=== PATIENT | male | born 1990 | race Caucasian/White ===

== ENCOUNTER 2016-06-03 21:34 | Emergency (ER) | payer BC ==
[2016-06-03 22:24] VITALS: BP 146/81
[2016-06-03] MEDS ORDERED: predniSONE TAB* 20 MG PO ONE (22:58)
[2016-06-03] MEDS ORDERED: Benzonatate CAP* 100 MG PO ONE ×2 (22:58→23:08)
--- NOTE | 2016-06-03 23:06 | UC ---
Respiratory Complaint HPI - HPI Summary HPI Summary: "terrible cough". URI symptoms for a week, now with a spastic cough that ends with gagging. Has to go to work tomorrow, needs something to control the cough. No fever. No sinus drainage. Cough is dry. HIstory of asthma. Nonsmoker - History of Current Complaint Chief Complaint: UCGeneralIllness Stated Complaint: UPPER RESPIRATORY Time Seen by Provider: 06/03/16 22:42 Hx Obtained From: Patient Onset/Duration: Gradual Onset, Lasting Weeks - 1 Timing: Constant Severity Initially: Mild Severity Currently: Mild Character: Cough: Nonproductive Aggravating Factors: Exertion, Recumbent Position Associated Signs And Symptoms: Positive: Chills, Wheezing, URI, Nasal Congestion , Hoarseness - Risk Factors Pulmonary Embolism Risk Factors: Negative Cardiac Risk Factors: Negative Pseudomonas Risk Factors: Negative Tuberculosis Risk Factors: Negative - Allergies/Home Medications Allergies/Adverse Reactions: Allergies Allergy/AdvReac Type Severity Reaction Status Date / Time Carbamazepine [From Tegretol] Allergy Intermediate fever rash Verified 06/03/16 22:14 Cefaclor [From Ceclor] Allergy Intermediate Rash Verified 06/03/16 22:14 Topiramate [From Topamax] Allergy Intermediate fever rash Verified 06/03/16 22: 14 Penicillins Allergy Unknown Unknown Verified 06/03/16 22:14 Reaction Details PMH/Surg Hx/FS Hx/Imm Hx Endocrine History Of: Denies: Diabetes, Thyroid Disease, Hyperthyroidism, Hypothyroidism, Dyslipidemia Cardiovascular History Of: Denies: Cardiac Disorders, Hypertension, Pacemaker/ICD, Myocardial Infarction , Congestive Heart Failure, Atrial Fibrillation, Deep Vein Thrombosis, Bleeding Disorders Respiratory History Of: Reports: Asthma - exercise asthma Denies: COPD, Bronchitis, Pneumonia, Pulmonary Embolism GI/ History Of: Reports: Gastroesophageal Reflux, Kidney Stones Denies: Ulcer, Gastrointestinal Bleed, Gall Bladder Disease, Diverticulitis, Renal Disease, Urosepsis Neurological History Of: Reports: Seizures Denies: TIA, CVA, Dementia, Migraine Psychological History Of: Denies: Anxiety, Depression, Bipolar Disorder, Schizophrenia, Post Traumatic Stress Disorder Cancer History Of: Denies: Lung Cancer, Colorectal Cancer, Breast Cancer, Prostate Cancer, Cervical Cancer Other History Of: Negative For: HIV, Hepatitis B, Hepatitis C - Surgical History Surgical History: Yes Surgery Procedure, Year, and Place: T&A. L testicle surgery - Family History Known Family History: Positive: None, Cardiac Disease, Hypertension, Diabetes, Other - Social History Alcohol Use: Rare Substance Use Type: None Smoking Status (MU): Never Smoked Tobacco - Immunization History Most Recent Influenza Vaccination: none Most Recent Tetanus Shot: unknown Review of Systems Constitutional: Negative Skin: Negative Eyes: Negative ENT: Nasal Discharge Respiratory: Shortness Of Breath, Cough Cardiovascular: Negative Gastrointestinal: Negative Genitourinary: Negative Motor: Negative Neurovascular: Negative Musculoskeletal: Negative Neurological: Negative Psychological: Negative All Other Systems Reviewed And Are Negative: Yes Physical Exam Triage Information Reviewed: Yes Appearance: Well-Appearing, No Pain Distress, Well-Nourished Vital Signs: Initial Vital Signs Temp 98.3 F 06/03/16 22:17 Pulse 118 06/03/16 22:17 Resp 20 06/03/16 22:17 BP 146/81 06/03/16 22:17 Pulse Ox 99 06/03/16 22:17 Vital Signs Reviewed: Yes Eye Exam: Normal ENT Exam: Normal ENT: Positive: Pharynx normal, TMs normal. Negative: Tonsillar swelling, Tonsillar exudate, Trismus, Muffled/hoarse voice Neck exam: Normal Respiratory Exam: Normal Respiratory: Positive: Lungs clear, Normal breath sounds, No respiratory distress, No accessory muscle use Cardiovascular Exam: Normal Musculoskeletal Exam: Normal Neurological Exam: Normal Psychological Exam: Normal Skin Exam: Normal Diagnostic Evaluation - Laboratory O2 Sat by Pulse Oximetry: 99 Respiratory Course/Dx - Differential Dx/Diagnosis Differential Diagnosis/HQI/PQRI: Bronchitis, Lower Resp Infection, Sinusitis Provider Diagnoses: URI with bronchospasm Discharge - Discharge Plan Condition: Stable Disposition: HOME Prescriptions: Albuterol HFA INHALER* [Ventolin HFA Inhaler*] 1 - 2 puff INH Q4H PRN #1 mdi PRN Reason: cough/wheezing Benzonatate CAP* [Tessalon CAP*] 100 mg PO TID PRN #30 cap PRN Reason: Cough predniSONE TAB* [Deltasone TAB*] 40 mg PO DAILY #10 tab Patient Education Materials: Upper Respiratory Infection (ED), Bronchospasm (ED ) Referrals: Eddie Parry MD [Primary Care Provider] - Additional Instructions: take your inhaler in to work tomorrow. It will help if you feel tight in your chest or you have a cough. Take the Tessalon pill before work. Take the prednisone with supper. This combination should help to keep your cough under control. The illness will run its own course and may last 3 or more weeks, but the cough won't be this bad the whole time.
== END 2016-06-03 23:15 | disposition home or self-care (01) ==
LOC: UCCORT 21:34
DX: J06.9 Acute upper respiratory infection, unspecified (principal); J98.01 Acute bronchospasm; Z88.1 Allergy status to other antibiotic agents; Z88.0 Allergy status to penicillin; Z88.8 Allergy status to other drugs, medicaments and biological substances
CPT/HCPCS: 99213; A9270-GY; G0463; J7512

== ENCOUNTER 2016-06-14 12:24 | Emergency (ER) | payer BC ==
[2016-06-14 14:58] VITALS: BP 162/87
--- NOTE | 2016-06-14 15:31 | UC ---
Respiratory Complaint HPI - HPI Summary HPI Summary: COUGH X 3 WEEKS + NASAL CONGESTION , SORE THROAT , NO FEVER, NO CHILLS + MULTIPLE BOILS UNDER RIGHT AXILLA - History of Current Complaint Chief Complaint: UCGeneralIllness Stated Complaint: COUGH,SKIN COMPLAINT Time Seen by Provider: 06/14/16 15:18 Hx Obtained From: Patient Onset/Duration: Gradual Onset, Lasting Weeks - 3, Still Present Timing: Constant Severity Initially: Moderate Severity Currently: Moderate Character: Cough: Nonproductive Aggravating Factors: Exertion, Deep Breaths Alleviating Factors: Nothing Associated Signs And Symptoms: Positive: Negative, URI, Nasal Congestion. Negative: Dyspnea, Fever, Chills, Pleuritic Chest Pain, Wheezing - Allergies/Home Medications Allergies/Adverse Reactions: Allergies Allergy/AdvReac Type Severity Reaction Status Date / Time Carbamazepine [From Tegretol] Allergy Intermediate fever rash Verified 06/14/16 14:47 Cefaclor [From Ceclor] Allergy Intermediate Rash Verified 06/14/16 14:47 Topiramate [From Topamax] Allergy Intermediate fever rash Verified 06/14/16 14: 47 Penicillins Allergy Unknown Unknown Verified 06/14/16 14:47 Reaction Details Home Medications: Home Medications Minocycline (NF) 50 mg PO DAILY 06/14/16 [History Confirmed 06/14/16] PMH/Surg Hx/FS Hx/Imm Hx Endocrine History Of: Denies: Diabetes, Thyroid Disease, Hyperthyroidism, Hypothyroidism, Dyslipidemia Cardiovascular History Of: Denies: Cardiac Disorders, Hypertension, Pacemaker/ICD, Myocardial Infarction , Congestive Heart Failure, Atrial Fibrillation, Deep Vein Thrombosis, Bleeding Disorders Respiratory History Of: Reports: Asthma - exercise asthma Denies: COPD, Bronchitis, Pneumonia, Pulmonary Embolism GI/ History Of: Reports: Gastroesophageal Reflux, Kidney Stones Denies: Ulcer, Gastrointestinal Bleed, Gall Bladder Disease, Diverticulitis, Renal Disease, Urosepsis Neurological History Of: Reports: Seizures Denies: TIA, CVA, Dementia, Migraine Psychological History Of: Denies: Anxiety, Depression, Bipolar Disorder, Schizophrenia, Post Traumatic Stress Disorder Cancer History Of: Denies: Lung Cancer, Colorectal Cancer, Breast Cancer, Prostate Cancer, Cervical Cancer Other History Of: Negative For: HIV, Hepatitis B, Hepatitis C - Surgical History Surgical History: Yes Surgery Procedure, Year, and Place: T&A. L testicle surgery - Family History Known Family History: Positive: None, Cardiac Disease, Hypertension, Diabetes, Other - Social History Alcohol Use: Rare Substance Use Type: None Smoking Status (MU): Never Smoked Tobacco - Immunization History Most Recent Influenza Vaccination: none Most Recent Tetanus Shot: unknown Review of Systems Constitutional: Negative Eyes: Negative ENT: Sore Throat, Nasal Discharge Respiratory: Cough Cardiovascular: Negative All Other Systems Reviewed And Are Negative: Yes Physical Exam Triage Information Reviewed: Yes Appearance: Well-Appearing, No Pain Distress, Obese Vital Signs: Initial Vital Signs Temp 98.1 F 06/14/16 14:49 Pulse 105 06/14/16 14:49 Resp 18 06/14/16 14:49 BP 162/87 06/14/16 14:49 Pulse Ox 98 06/14/16 14:49 Vital Signs Reviewed: Yes Eyes: Positive: Conjunctiva Clear ENT: Positive: Normal ENT inspection, Hearing grossly normal, Pharynx normal Neck exam: Normal Neck: Positive: Supple, Nontender, No Lymphadenopathy Respiratory Exam: Normal Respiratory: Positive: Chest non-tender, Lungs clear Cardiovascular: Positive: RRR, No Murmur, Pulses Normal Abdomen Description: Positive: Nontender, Soft Bowel Sounds: Positive: Present Neurological: Positive: Alert, Muscle Tone Normal, Fatigued Skin: Positive: Other - + FOLLICULITIS LEFT AXILLA UC Diagnostic Evaluation - Laboratory O2 Sat by Pulse Oximetry: 98 Respiratory Course/Dx - Differential Dx/Diagnosis Provider Diagnoses: BRONCHITIS. FOLLICULITIS Discharge - Discharge Plan Condition: Stable Disposition: HOME Prescriptions: DOXYcycline CAP(*) [DOXYcycline 100MG CAP(*)] 100 mg PO BID #20 cap Patient Education Materials: Acute Bronchitis (ED), Folliculitis (ED) Referrals: Eddie Parry MD [Primary Care Provider] - 7 Days
== END 2016-06-14 15:38 | disposition home or self-care (01) ==
LOC: UCCORT 12:24
DX: J40 Bronchitis, not specified as acute or chronic (principal); L73.9 Follicular disorder, unspecified; E66.9 Obesity, unspecified; Z88.0 Allergy status to penicillin; Z88.1 Allergy status to other antibiotic agents; Z88.8 Allergy status to other drugs, medicaments and biological substances
CPT/HCPCS: 99212; G0463

== ENCOUNTER 2016-07-10 17:14 | Emergency (ER) | payer BC ==
[2016-07-10 18:09] VITALS: BP 143/90
--- NOTE | 2016-07-10 18:30 | UC ---
General HPI - HPI Summary HPI Summary: complaint of crack in skin under left 5th toe that he noticed last night slightly painful and stings hasn't used any medication on toe - History of Current Complaint Chief Complaint: UCSkin Stated Complaint: L SMALL TOE SKIN WOUND Time Seen by Provider: 07/10/16 18:20 Hx Obtained From: Patient - Allergy/Home Medications Allergies/Adverse Reactions: Allergies Allergy/AdvReac Type Severity Reaction Status Date / Time Carbamazepine [From Tegretol] Allergy Intermediate fever rash Verified 07/10/16 18:09 Cefaclor [From Ceclor] Allergy Intermediate Rash Verified 07/10/16 18:09 Topiramate [From Topamax] Allergy Intermediate fever rash Verified 07/10/16 18: 09 Penicillins Allergy Unknown Unknown Verified 07/10/16 18:09 Reaction Details Home Medications: Home Medications Potassium Citrate (NF) [Urocit-K 10 (NF)] 10 meq PO BID 07/10/16 [History Confirmed 07/10/16] PMH/Surg Hx/FS Hx/Imm Hx Previously Healthy: Yes Endocrine History Of: Denies: Diabetes, Thyroid Disease, Hyperthyroidism, Hypothyroidism, Dyslipidemia Cardiovascular History Of: Denies: Cardiac Disorders, Hypertension, Pacemaker/ICD, Myocardial Infarction , Congestive Heart Failure, Atrial Fibrillation, Deep Vein Thrombosis, Bleeding Disorders Respiratory History Of: Reports: Asthma - exercise asthma Denies: COPD, Bronchitis, Pneumonia, Pulmonary Embolism GI/ History Of: Reports: Gastroesophageal Reflux, Kidney Stones Denies: Ulcer, Gastrointestinal Bleed, Gall Bladder Disease, Diverticulitis, Renal Disease, Urosepsis Neurological History Of: Reports: Seizures Denies: TIA, CVA, Dementia, Migraine Psychological History Of: Denies: Anxiety, Depression, Bipolar Disorder, Schizophrenia, Post Traumatic Stress Disorder Cancer History Of: Denies: Lung Cancer, Colorectal Cancer, Breast Cancer, Prostate Cancer, Cervical Cancer Other History Of: Negative For: HIV, Hepatitis B, Hepatitis C - Surgical History Surgical History: Yes Surgery Procedure, Year, and Place: T&A. L testicle surgery - Family History Known Family History: Positive: None, Cardiac Disease, Hypertension, Diabetes, Other - Social History Occupation: Employed Full-time Lives: With Family Alcohol Use: Rare Substance Use Type: None Smoking Status (MU): Never Smoked Tobacco - Immunization History Most Recent Influenza Vaccination: none Most Recent Tetanus Shot: unknown Review of Systems Constitutional: Negative Skin: Other - rash Eyes: Negative ENT: Negative Respiratory: Negative Cardiovascular: Negative Gastrointestinal: Negative Genitourinary: Negative Motor: Negative Neurovascular: Negative Musculoskeletal: Negative Neurological: Negative Psychological: Negative All Other Systems Reviewed And Are Negative: Yes Physical Exam Triage Information Reviewed: Yes Appearance: No Pain Distress, Well-Nourished, Obese Vital Signs: Initial Vital Signs Temp 98 F 07/10/16 18:04 Pulse 102 07/10/16 18:04 Resp 18 07/10/16 18:04 BP 143/90 07/10/16 18:04 Pulse Ox 100 07/10/16 18:04 Vital Signs Reviewed: Yes Eyes: Positive: Conjunctiva Clear ENT: Positive: Pharynx normal, TMs normal. Negative: Nasal congestion Neck: Positive: No Lymphadenopathy Respiratory: Positive: Lungs clear, Normal breath sounds, No respiratory distress Cardiovascular: Positive: RRR, No Murmur Musculoskeletal: Positive: No Edema Neurological: Positive: Alert Psychological Exam: Normal Skin: Positive: Other - left 5th toe - erythematous area with small opening under toe Course/Dx - Differential Dx - Multi-Symptom Differential Diagnoses: Other - rash, tinea Provider Diagnoses: fungal infection Discharge - Discharge Plan Condition: Stable Disposition: HOME Prescriptions: Clotrimazole 1% CREAM* [Clotrimazole 1%*] 1 applic TOPICAL BID #1 tube Patient Education Materials: Antifungals (On the skin) Referrals: Eddie Parry MD [Primary Care Provider] - Additional Instructions: Start anti-fugal cream as directed wash your feet with soap and water and dry them well before using cream Please review your discharge instructions. If your symptoms do not improve please call your primary care provider or return to urgent care
== END 2016-07-10 18:55 | disposition home or self-care (01) ==
LOC: UCCORT 17:14
DX: B35.3 Tinea pedis (principal); Z88.1 Allergy status to other antibiotic agents; Z88.8 Allergy status to other drugs, medicaments and biological substances
CPT/HCPCS: 99212; G0463

== ENCOUNTER 2016-11-26 16:03 | Emergency (ER) | payer BC ==
--- NOTE | 2016-11-26 16:30 | ED ---
Skin Complaint - HPI Summary HPI Summary: 26 YEAR OLD MALE PRESENTS WITH COMPLAINS OF RASH UNDER RIGHT AXILLA AND BILATERAL CERUMEN IMPACTION. - History of Current Complaint Time Seen by Provider: 11/26/16 16:30 Stated Complaint: RASH RIGHT ARM/HARD OF HEARING - Allergy/Home Medications Allergies/Adverse Reactions: Allergies Allergy/AdvReac Type Severity Reaction Status Date / Time Carbamazepine [From Tegretol] Allergy Intermediate fever rash Verified 11/26/16 16:30 Cefaclor [From Ceclor] Allergy Intermediate Rash Verified 11/26/16 16:30 Topiramate [From Topamax] Allergy Intermediate fever rash Verified 11/26/16 16: 30 Penicillins Allergy Unknown Unknown Verified 11/26/16 16:30 Reaction Details Home Medications: Home Medications Calcium 500 mg PO DAILY 11/26/16 [History Confirmed 11/26/16] PMH/Surg Hx/FS Hx/Imm Hx Endocrine/Hematology History: Denies: Hx Diabetes, Hx Thyroid Disease Cardiovascular History: Denies: Hx Congestive Heart Failure, Hx Deep Vein Thrombosis, Hx Hypertension , Hx Myocardial Infarction, Hx Pacemaker/ICD Respiratory History: Reports: Hx Asthma - exercise asthma Denies: Hx Chronic Obstructive Pulmonary Disease (COPD), Hx Lung Cancer, Hx Pneumonia, Hx Pulmonary Embolism GI History: Denies: Hx Gall Bladder Disease, Hx Gastrointestinal Bleed, Hx Ulcer, Hx Urosepsis History: Reports: Hx Kidney Stones Denies: Hx Renal Disease Neurological History: Reports: Hx Seizures Denies: Hx Dementia, Hx Migraine, Hx Transient Ischemic Attacks (TIA) Psychiatric History: Denies: Hx Anxiety, Hx Depression, Hx Schizophrenia, Hx Bipolar Disorder - Surgical History Surgery Procedure, Year, and Place: T&A. L testicle surgery - Family History Known Family History: Positive: None, Cardiac Disease, Hypertension, Diabetes, Other - Social History Alcohol Use: Rare Substance Use Type: Reports: None Smoking Status (MU): Never Smoked Tobacco Review of Systems Positive: Ear Ache Positive: Rash - UNDER RIGHT AXILLA All Other Systems Reviewed And Are Negative: Yes Physical Exam Triage Information Reviewed: Yes Skin: Positive: Other - RASH UNDER RIGHT AXILLA ENT: Positive: Other - BILATERAL CERUMEN IMPACTION Course/Dx - Diagnoses Provider Diagnoses: Rash Discharge - Discharge Plan Condition: Stable Disposition: HOME Prescriptions: Erythromycin TAB* 500 mg PO QID #40 tab Methylprednisolone [Medrol Dosepak 4 MG*] 4 mg PO .SEE TIFFANY INSTRUCTION #21 tab Neomyc/Polym/HC 1% OTIC SUSP* [Cortisporin Otic Susp 1%*] 4 drop BOTH EARS QID # 1 btl Triamcinolone 0.1% CREAM (NF) [Kenalog 0.1% Cream (NF)] 1 applic TOPICAL BID # 90 gm Patient Education Materials: Acute Rash (ED), Skin Yeast Infection (ED) Referrals: Eddie Parry MD [Primary Care Provider] - If Needed
[2016-11-26 16:45] VITALS: BP 138/77
== END 2016-11-26 17:39 | disposition home or self-care (01) ==
LOC: UCCORT 16:03
DX: R21 Rash and other nonspecific skin eruption (principal); J45.990 Exercise induced bronchospasm; R56.9 Unspecified convulsions; Z87.442 Personal history of urinary calculi; Z88.0 Allergy status to penicillin
CPT/HCPCS: 99213; G0463

== ENCOUNTER 2017-01-30 21:25 | Emergency (ER) | payer BC ==
--- NOTE | 2017-01-30 21:37 | UC ---
Complaint Male HPI - HPI Summary HPI Summary: 26 YEAR OLD MALE PRESENTS WITH COMPLAINS OF URINARY FREQUENCY,URGENCY, AND BURNING - History of Current Complaint Stated Complaint: URINARY Time Seen by Provider: 01/30/17 21:34 Hx Obtained From: Patient Onset/Duration: Sudden Onset Timing: Constant Severity Initially: Moderate Pain Scale Used: 0-10 Numeric - 5 - Allergies/Home Medications Allergies/Adverse Reactions: Allergies Allergy/AdvReac Type Severity Reaction Status Date / Time Carbamazepine [From Tegretol] Allergy Intermediate fever rash Verified 01/30/17 21:41 Cefaclor [From Ceclor] Allergy Intermediate Rash Verified 01/30/17 21:41 Topiramate [From Topamax] Allergy Intermediate fever rash Verified 01/30/17 21: 41 Penicillins Allergy Unknown Unknown Verified 01/30/17 21:41 Reaction Details PMH/Surg Hx/FS Hx/Imm Hx Other History Of: Negative For: HIV, Hepatitis B, Hepatitis C - Surgical History Surgical History: Yes Surgery Procedure, Year, and Place: T&A. L testicle surgery - Family History Known Family History: Positive: None, Cardiac Disease, Hypertension, Diabetes, Other - Social History Alcohol Use: Rare Substance Use Type: None Smoking Status (MU): Never Smoked Tobacco - Immunization History Most Recent Influenza Vaccination: none Most Recent Tetanus Shot: unknown Review of Systems Constitutional: Negative Skin: Negative Eyes: Negative ENT: Negative Respiratory: Negative Cardiovascular: Negative Gastrointestinal: Negative Genitourinary: Frequency, Urgency Motor: Negative Neurovascular: Negative Musculoskeletal: Negative Neurological: Negative Psychological: Negative All Other Systems Reviewed And Are Negative: Yes Physical Exam Triage Information Reviewed: Yes Appearance: Well-Appearing Eye Exam: Normal ENT Exam: Normal Dental Exam: Normal Neck exam: Normal Neck: Positive: 1 Respiratory Exam: Normal Cardiovascular Exam: Normal Abdominal Exam: Normal Musculoskeletal Exam: Normal Neurological Exam: Normal Psychological Exam: Normal Skin Exam: Normal Complaint Male Course/Dx - Differential Dx/Diagnosis Provider Diagnoses: URINARY FREQUENCY. URINARY URGENCY Discharge - Discharge Plan Condition: Stable Disposition: HOME Prescriptions: Ciprofloxacin TAB* [Cipro 500 MG TAB*] 500 mg PO BID #10 tab Patient Education Materials: Urinary Tract Infection in Men (ED) Referrals: Eddie Parry MD [Primary Care Provider] -
[2017-01-30 21:53] VITALS: BP 141/78
[2017-01-30] MEDS ORDERED: Ciprofloxacin TAB* 500 MG PO ONE (22:12)
--- NOTE | 2017-02-02 07:12 | ED ---
Progress - Progress Note Progress Note: no change. Course/Dx - Diagnoses Provider Diagnoses: UTI (urinary tract infection)
== END 2017-01-30 22:18 | disposition home or self-care (01) ==
LOC: UCCORT 21:25
DX: N39.0 Urinary tract infection, site not specified (principal); Z88.1 Allergy status to other antibiotic agents; Z88.0 Allergy status to penicillin; Z88.8 Allergy status to other drugs, medicaments and biological substances
CPT/HCPCS: 81003; 87086; 99212; A9270-GY; G0463

== ENCOUNTER 2017-04-14 11:15 | Emergency (ER) | payer BC ==
[2017-04-14 11:34] VITALS: BP 161/87
--- NOTE | 2017-04-14 11:57 | UC ---
Throat Pain/Nasal Raheel HPI - History of Current Complaint Chief Complaint: UCGeneralIllness Stated Complaint: COUGH SORE THROAT CONGESTION Time Seen by Provider: 04/14/17 11:17 Onset/Duration: Gradual Onset, Lasting Days Severity: Moderate Cough: Productive Associated Signs & Symptoms: Positive: Hoarseness, Sinus Discomfort, Nasal Discharge - Epiglottits Risk Factors Epiglottis Risk Factors: Negative - Allergies/Home Medications Allergies/Adverse Reactions: Allergies Allergy/AdvReac Type Severity Reaction Status Date / Time Carbamazepine [From Tegretol] Allergy Intermediate fever rash Verified 04/14/17 11:36 Cefaclor [From Ceclor] Allergy Intermediate Rash Verified 04/14/17 11:36 Topiramate [From Topamax] Allergy Intermediate fever rash Verified 04/14/17 11: 36 Penicillins Allergy Unknown Unknown Verified 04/14/17 11:36 Reaction Details PMH/Surg Hx/FS Hx/Imm Hx Previously Healthy: Yes Other History Of: Negative For: HIV, Hepatitis B, Hepatitis C - Surgical History Surgical History: Yes Surgery Procedure, Year, and Place: T&A. L testicle surgery - Family History Known Family History: Positive: None, Cardiac Disease, Hypertension, Diabetes, Other - Social History Occupation: Unemployed Lives: With Family Alcohol Use: Rare Substance Use Type: None Smoking Status (MU): Never Smoked Tobacco - Immunization History Most Recent Influenza Vaccination: none Most Recent Tetanus Shot: unknown Review of Systems Constitutional: Negative Skin: Negative Eyes: Negative ENT: Nasal Discharge, Sinus Congestion, Sinus Pain/Tenderness Respiratory: Cough Cardiovascular: Negative Gastrointestinal: Negative Genitourinary: Negative Motor: Negative Neurovascular: Negative Musculoskeletal: Negative Neurological: Negative Psychological: Negative Is Patient Immunocompromised?: No All Other Systems Reviewed And Are Negative: Yes Physical Exam Triage Information Reviewed: Yes Appearance: Well-Appearing, No Pain Distress, Well-Nourished Vital Signs: Initial Vital Signs Temp 96.8 F 04/14/17 11:27 Pulse 107 04/14/17 11:27 Resp 16 04/14/17 11:27 BP 161/87 04/14/17 11:27 Pulse Ox 98 04/14/17 11:27 Vital Signs Reviewed: Yes Eye Exam: Normal ENT: Positive: Nasal congestion, Nasal drainage, TM bulging, TM dull, Sinus tenderness - right sided maxillary Dental Exam: Normal Neck exam: Normal Neck: Positive: Supple, Nontender, No Lymphadenopathy Respiratory Exam: Other - cough Respiratory: Positive: Chest non-tender, Lungs clear, Normal breath sounds, No respiratory distress, No accessory muscle use Cardiovascular Exam: Normal Cardiovascular: Positive: RRR, No Murmur, Pulses Normal Abdominal Exam: Normal Musculoskeletal Exam: Normal Neurological Exam: Normal Psychological Exam: Normal Skin Exam: Normal Throat Pain/Nasal Course/Dx - Differential Dx/Diagnosis Differential Diagnosis/HQI/PQRI: Pharyngitis, Sinusitis Provider Diagnoses: SINUSITIS Discharge - Discharge Plan Condition: Stable Disposition: HOME Prescriptions: Azithromycin TAB* [Zithromax TAB (Z-TIFFANY) 250 mg #6 tabs] 250 mg PO DAILY #6 tab Patient Education Materials: Sinusitis (ED) Referrals: Eddie Parry MD [Primary Care Provider] -
== END 2017-04-14 12:03 | disposition home or self-care (01) ==
LOC: UCCORT 11:15
DX: J32.9 Chronic sinusitis, unspecified (principal); Z88.3 Allergy status to other anti-infective agents; Z88.0 Allergy status to penicillin; Z88.8 Allergy status to other drugs, medicaments and biological substances
CPT/HCPCS: 99212; G0463

== ENCOUNTER 2018-01-16 17:48 | Emergency (ER) | payer OTHER ==
[2018-01-16 19:22] VITALS: BP 148/74
--- NOTE | 2018-01-16 19:38 | UC ---
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 Denies redness, pain, or stiffness on finger, has been covering wound with bandaid when wetting hands, steristrips are still in place. - History Of Current Complaint Chief Complaint: UCLaceration Stated Complaint: WOUND RECHECK Time Seen by Provider: 01/16/18 19:24 Hx Obtained From: Patient Onset/Duration: Sudden Onset, Lasting Days Severity: Mild Pain Intensity: 0 Procedure Type: steristrips Hands: 1 - linear healed wound on tuft 4th left finger - Allergies/Home Medications Allergies/Adverse Reactions: Allergies Allergy/AdvReac Type Severity Reaction Status Date / Time carbamazepine [From Tegretol] Allergy Intermediate rash/fever Verified 01/16/18 19:12 cefaclor [From Ceclor] Allergy Intermediate Rash Verified 01/16/18 19:12 topiramate [From Topamax] Allergy Intermediate rash/fever Verified 01/16/18 19: 12 Penicillins Allergy Unknown Unknown Verified 01/16/18 19:12 Reaction Details Home Medications: Home Medications Acetaminophen [Extra Strength Non-Aspirin] 1,000 mg PO Q6H PRN 01/16/18 [ History Confirmed 01/16/18] PMH/Surg Hx/FS Hx/Imm Hx Previously Healthy: Yes GI/ History: Gastroesophageal Reflux, Kidney Stones Neurological History: Seizures Other History Of: Negative For: HIV, Hepatitis B, Hepatitis C - Surgical History Surgical History: Yes Surgery Procedure, Year, and Place: T&A. L testicle surgery - Family History Known Family History: Positive: None, Cardiac Disease, Hypertension, Diabetes, Other - Social History Alcohol Use: Rare Substance Use Type: None Smoking Status (MU): Never Smoked Tobacco - Immunization History Most Recent Influenza Vaccination: none Most Recent Tetanus Shot: unknown Hx Tetanus, Diphtheria Vaccination: No Vaccination Up to Date: Yes Review of Systems Constitutional: Negative Skin: Other - wound All Other Systems Reviewed And Are Negative: Yes Physical Exam Triage Information Reviewed: Yes Vital Signs: Initial Vital Signs Temp 97 F 01/16/18 19:15 Pulse 96 01/16/18 19:15 Resp 20 01/16/18 19:15 BP 148/74 01/16/18 19:15 Pulse Ox 100 01/16/18 19:15 Vital Signs Reviewed: Yes Eyes: Positive: Conjunctiva Clear ENT: Positive: Hearing grossly normal Neck: Positive: Supple Respiratory: Positive: Chest non-tender Cardiovascular: Positive: Pulses Normal, Brisk Capillary Refill Abdomen Description: Positive: Nontender Bowel Sounds: Positive: Present Musculoskeletal: Positive: Strength Intact, ROM Intact, No Edema Skin Exam: Other - healed laceration of left 4th finger with granulation tissue along it, steristrips in place. No edema/erythema, FROM, capillary refill is brisk, distal pulses present Course/Dx - Course Course Of Treatment: wound is dry without any signs of infection, steristrips in place. Continue wound care and keep dry. - Differential Dx - Laceration/Wound Provider Diagnoses: elevated BP without diagnosis of HTN. Healed laceration Discharge - Sign-Out/Discharge Documenting (check all that apply): Patient Departure All imaging exams completed and their final reports reviewed: No Studies - Discharge Plan Condition: Stable Disposition: HOME Patient Education Materials: Steristrjuan (ED) Referrals: Eddie Parry MD [Primary Care Provider] - - Billing Disposition and Condition Condition: STABLE Disposition: Home
== END 2018-01-16 19:44 | disposition home or self-care (01) ==
LOC: UCCORT 17:48
DX: R03.0 Elevated blood-pressure reading, without diagnosis of hypertension (principal); Z09 Encounter for follow-up examination after completed treatment for conditions other than malignant neoplasm; S61.215D Laceration without foreign body of left ring finger without damage to nail, subsequent encounter; Z88.0 Allergy status to penicillin; Z88.8 Allergy status to other drugs, medicaments and biological substances; Z88.1 Allergy status to other antibiotic agents
CPT/HCPCS: 99211; G0463

== ENCOUNTER 2018-03-26 17:37 | Emergency (ER) | payer OTHER ==
[2018-03-26 18:22] VITALS: BP 143/85
--- NOTE | 2018-03-26 18:30 | UC ---
UC General HPI - HPI Summary HPI Summary: pt is c/o a 2 day hx generalized muscle soreness. he denies any hx of over use. he denies any recent changes in his chronic medications. he has no acute illness. he has no muscle weakness and no numbness. - History of Current Complaint Chief Complaint: UCGeneralIllness Stated Complaint: BODY ACHES Time Seen by Provider: 03/26/18 18:08 Hx Obtained From: Patient Timing: Constant Pain Intensity: 5 Aggravating: nothing Alleviating: nothing Associated Signs & Symptoms: Negative: Fever, Weakness - Allergy/Home Medications Allergies/Adverse Reactions: Allergies Allergy/AdvReac Type Severity Reaction Status Date / Time carbamazepine [From Tegretol] Allergy Intermediate rash/fever Verified 03/26/18 18:22 cefaclor [From Ceclor] Allergy Intermediate Rash Verified 03/26/18 18:22 topiramate [From Topamax] Allergy Intermediate rash/fever Verified 03/26/18 18: 22 Penicillins Allergy Unknown Unknown Verified 03/26/18 18:22 Reaction Details Home Medications: Home Medications Minocycline (NF) 100 mg PO DAILY 03/26/18 [History Confirmed 03/26/18] PMH/Surg Hx/FS Hx/Imm Hx - Additional Past Medical History Additional PMH: allergies GI/ History: Gastroesophageal Reflux, Kidney Stones Neurological History: Seizures Other History Of: Negative For: HIV, Hepatitis B, Hepatitis C - Surgical History Surgical History: Yes Surgery Procedure, Year, and Place: T&A. L testicle surgery - Family History Known Family History: Positive: None, Cardiac Disease, Hypertension, Diabetes, Other - Social History Occupation: Employed Full-time Alcohol Use: Rare Substance Use Type: None Smoking Status (MU): Never Smoked Tobacco - Immunization History Most Recent Influenza Vaccination: none Most Recent Tetanus Shot: unknown Hx Tetanus, Diphtheria Vaccination: No Vaccination Up to Date: Yes Review of Systems All Other Systems Reviewed And Are Negative: Yes Constitutional: Positive: Negative Skin: Positive: Negative Eyes: Positive: Negative ENT: Positive: Negative Respiratory: Positive: Negative Cardiovascular: Positive: Negative Gastrointestinal: Positive: Negative Genitourinary: Positive: Negative Motor: Positive: Negative Neurovascular: Positive: Negative Musculoskeletal: Positive: Myalgia Neurological: Positive: Negative Psychological: Positive: Negative Is Patient Immunocompromised?: No Physical Exam Triage Information Reviewed: Yes Appearance: Well-Appearing Vital Signs: Initial Vital Signs Temp 96.5 F 03/26/18 18:19 Pulse 118 03/26/18 18:19 Resp 18 03/26/18 18:19 BP 143/85 03/26/18 18:19 Pulse Ox 99 03/26/18 18:19 Vital Signs Reviewed: Yes Eyes: Positive: Conjunctiva Clear ENT: Positive: Pharynx normal, TMs normal. Negative: Nasal congestion, Nasal drainage Neck: Positive: Supple, Nontender, No Lymphadenopathy Respiratory: Positive: Lungs clear, Normal breath sounds Cardiovascular: Positive: No Murmur, Tachycardia - 112 Abdomen Description: Positive: Nontender, No Organomegaly, Soft. Negative: Distended, Guarding Bowel Sounds: Positive: Present Musculoskeletal: Positive: ROM Intact, No Edema, Other: - No tenderness with palpation over the major muscle groups. Neurological: Positive: Alert, Muscle Tone Normal - 5/5 strength and 2+ reflexes x4. Psychological: Positive: Age Appropriate Behavior Skin Exam: Normal Diagnostics - EKG Cardiac Rate: Tachycardia Cardiac Rhythm: Sinus: Normal Ectopy: None ST Segment: Normal Re-Evaluation - Re-Evaluation First Eval Re-Evaluation Time: 18:57 Change: Improved - HR=96 post 1L po fluids Course/Dx - Course Course Of Treatment: very well appearing pt. the ekg showed mild tachycardia. when vs's are trended from prior visits, pt HR is mildly elevated. he is on daily medications that may alter his electrolytes thus will check a cmp plus add a cpk. there is no indication for emergent ER transfer. no concern for lamictal toxicity. BP Mildly elevated. will have recheck on f/u. pt case d/w Dr Vazquez, we agreed on the workup. - Differential Dx - Multi-Symptom Provider Diagnoses: myalgias Discharge - Sign-Out/Discharge Documenting (check all that apply): Patient Departure All imaging exams completed and their final reports reviewed: No Studies - Discharge Plan Condition: Stable Disposition: HOME Patient Education Materials: Musculoskeletal Pain (ED) Referrals: Eddie Parry MD [Primary Care Provider] - 3 Days Additional Instructions: GO TO THE ER FOR ANY WORSENING - Billing Disposition and Condition Condition: STABLE Disposition: Home
[2018-03-27 14:50] LABS: EGFR Non-African American 72.5 (>60)
--- NOTE | 2018-03-28 08:03 | UC ---
- Progress Note Progress Note: Laboratory results come back from March 26, 2018. The creatinine is slightly elevated at 1.21 The ALT is elevated at 90 for the AST is elevated at 60 The CPK is elevated at 503 Nursing to call patient and inform him of the abnormal lab results. Encouraged him to drink plenty of fluids. As long as he is feeling well he can have this rechecked with his primary care doctor as none of these values are in a dangerous range. If he is feeling worse I would recommend reevaluation sooner. Re-Evaluation - Re-Evaluation First Eval Re-Evaluation Time: 18:57 Change: Improved - HR=96 post 1L po fluids Discharge - Sign-Out/Discharge Documenting (check all that apply): Patient Departure All imaging exams completed and their final reports reviewed: No Studies - Discharge Plan Condition: Stable Disposition: HOME Patient Education Materials: Musculoskeletal Pain (ED) Referrals: Eddie Parry MD [Primary Care Provider] - 3 Days Additional Instructions: GO TO THE ER FOR ANY WORSENING - Billing Disposition and Condition Condition: STABLE Disposition: Home
== END 2018-03-26 19:13 | disposition home or self-care (01) ==
LOC: UCCORT 17:37
DX: M79.10 Myalgia, unspecified site (principal); Z88.0 Allergy status to penicillin; Z88.1 Allergy status to other antibiotic agents; Z88.8 Allergy status to other drugs, medicaments and biological substances
CPT/HCPCS: 36415; 80053; 82550; 93005; 99211; G0463

== ENCOUNTER 2018-06-22 21:02 | Emergency (ER) | payer BC, OTHER ==
--- OUTSIDE RECORDS SUMMARY | 2018-06-22 21:17 | XMS REPORT | Continuity of Care Document ---
:1990 External Reference #:[id number] Author Name Fiorella Holliday Care Team Providers Name Role Phone Eddie Parry MD Care Team Information Acid Mixer Unavailable Eddie Parry MD Primary Care Physician Unavailable Payers Type Date Identification Numbers Payment Provider Subscriber Policy Number: [id number] [facility] Sabino Bautista PayID: [id number] [address] [place] [address] Expires: 2018 Policy Number: [id number] [facility] Halima Bautista PayID: [id number] [address] [address] [place] [address] Advance Directives Description No Information Available Problems Date Description Provider Status Onset: 07/10/2012 Epistaxis Carlos Manuel So M.D. Active Onset: 07/10/2012 Chronic rhinitis Carlos Manuel So M.D. Active Onset: 07/10/2012 Deviated nasal septum Carlos Manuel So M.D. Active Onset: 07/10/2012 Hypertrophy of nasal turbinates Carlos Manuel So M.D. 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 [employer] Tobacco Use Start: Unknown Never Smoked Cigarettes ETOH Use Rare Use Of Alcohol Recreational Drug Use Never Used Drugs Allergies, Adverse Reactions, Alerts Date Description Reaction Status Severity Comments 05/29/2009 Penicillin + drug reaction Active 05/29/2009 Topamax rash,hives Active 05/29/2009 Tegretol rash,hives Active 05/29/2009 Ceclor rapid heart beat,rash Active Medications Medication Date Status Form Strength Qnty SIG Indications Ordering Provider Lamictal / Active Tablets 250mg bid Unknown 0000 Xyzal / Active Daily Unknown 0000 Minocycline HCL / Active Capsules 100mg Daily Unknown 0000 Amiloride HCL / Active Tablets 5mg 1 PO qd Unknown 0000 Hydrochlorothiazide / Active Tablets 50mg 1 by Unknown 0000 mouth every day Potassium / Active Tablets Daily Unknown 0000 ER Proair HFA / Active Aerosol 108(90Bas 2puffs Unknown 0000 e) four mcg/Act times a day as needed for sob Vitamin D3 / Active Tablets daily Unknown 0000 Zantac / Active Tablets 1 by Unknown 0000 mouth once a day No Active Medications Unknown 2015 - 2015 Singulair / Hx Tablets 10mg 30tab 1 po qd Unknown 0000 - s 2009 Lamictal / Hx Tablets 200mg 2 tabs Unknown 0000 - qday 2015 Xyzal / Hx Tablets 5mg 30tab 1 po qd Unknown 0000 - s 2015 Calcium / Hx Tablets 600mg Qday Unknown 2015 Vitamin D 3 / Hx Capsules 1000Unit Qday Unknown - 2015 Vitamin C / Hx Tablets 500mg qday Unknown 2015 Omeprazole / Hx Capsules 20mg 1 by Unknown 0000 - DR mouth 11/25/ 2015 day Immunizations Description No Information Available Vital Signs Date Vital Result Comment 06/03/2018 4:50pm Weight 359.00 lb Height 72 inches 6'0" BMI (Body Mass Index) 48.7 kg/m2 BP Systolic 143 mmHg BP Diastolic 88 mmHg Heart Rate 106 /min O2 % BldC Oximetry 96 % Body Temperature 96.0 F Ruthton Score 6 Pain Level 0 11/27/2015 8:19am Weight 307.00 lb Height 72 inches 6'0" BMI (Body Mass Index) 41.6 kg/m2 BP Systolic 132 mmHg BP Diastolic 84 mmHg Heart Rate 73 /min O2 % BldC Oximetry 97 % Body Temperature 98.3 F 06/05/2015 10:56am Weight 320.00 lb Height 72 inches 6'0" BMI (Body Mass Index) 43.4 kg/m2 BP Systolic 137 mmHg BP Diastolic 92 mmHg Heart Rate 101 /min O2 % BldC Oximetry 96 % Body Temperature 97.5 F Ruthton Score 2 Neck Circumference in inches 18.5 07/10/2012 11:26am Weight 296.00 lb Height 71 inches 5'11" BMI (Body Mass Index) 41.3 kg/m2 BP Systolic 150 mmHg BP Diastolic 80 mmHg Heart Rate 88 /min O2 % BldC Oximetry 97 % Body Temperature 97.3 F 04/17/2010 8:37am Weight 294.00 lb Height 71 inches 5'11" BMI (Body Mass Index) 41.0 kg/m2 BP Systolic 140 mmHg BP Diastolic 80 mmHg Heart Rate 88 /min Body Temperature 96.2 F 05/29/2009 11:19am Weight 282.25 lb Height 71 inches 5'11" BMI (Body Mass Index) 39.4 kg/m2 BP Systolic 130 mmHg BP Diastolic 76 mmHg Heart Rate 81 /min O2 % BldC Oximetry 98 % Body Temperature 98.5 F 17.75" Results Description No Information Available Procedures Date Code Description Status 06/22/2015 13693 Sleep Staging 4Or More Para Completed 06/05/2015 16060 Fiberoptic Laryngoscopy,Diag. Completed 07/13/2012 64032 Nasal Endoscopy, Diag. Completed 07/10/2012 31905 Nasal Endoscopy, Diag. Completed 04/17/2010 09565 Nasal Endoscopy, Diag. Completed 08/11/2009 02213 Sleep Staging 4Or More Para Completed 05/29/2009 29621 Fiberoptic Laryngoscopy,Diag. Completed Encounters Type Date Location Provider Dx Diagnosis Office Visit 12/16/2016 Main Office Carlos Manuel So M.D. G47.33 Obstructive sleep 4:45p apnea (adult) (pediatric) E66.9 Obesity, unspecified Office Visit 11/27/2015 8:00a Main Office Deepa A G47.33 Obstructive sleep Eduardo, CIPRIANO apnea (adult) (pediatric) Office Visit 09/05/2015 8:45a Main Office Deepa A G47.33 Obstructive sleep Eduardo, CIPRIANO apnea (adult) (pediatric) G47.9 Sleep disorder, unspecified Office Visit 06/05/2015 10:30a Main Office Deepa A G47.9 Sleep disorder, CIPRIANO Clark unspecified R06.83 Snoring J34.3 Hypertrophy of nasal turbinates Office Visit 07/13/2012 10:15a Main Office Carlos Manuel So M.D. 784.7 Epistaxis 470 Deviated Nasal Septum 472.0 Rhinitis Chronic 478.0 Hypertrophy Nasal Turbinates 780.50 Sleep Disturbance Unspec Office Visit 07/10/2012 11:15a Main Office Carlos Manuel So M.D. 784.7 Epistaxis 472.0 Rhinitis Chronic 470 Deviated Nasal Septum 478.0 Hypertrophy Nasal Turbinates Office Visit 04/17/2010 8:30a Main Office Carlos Manuel So M.D. 784.7 Epistaxis 472.0 Rhinitis Chronic 478.0 Hypertrophy Nasal Turbinates Office Visit 08/28/2009 11:30a Main Office Carlos Manuel So, 780.50 Sleep Disturbance M.DBoone Unspec 470 Deviated Nasal Septum 472.0 Rhinitis Chronic Office Visit 05/29/2009 11:00a Main Office Chasity Duncan, 780.50 Sleep Disturbance PA Unspec 470 Deviated Nasal Septum 472.0 Rhinitis Chronic Plan of Treatment 06/05/2015 - Deepa Clark, NPG47.9 Sleep disorder, [id number] RskvunhL96.3 Hypertrophy of nasal turbinatesNew Orders:PSG - Sleep Study, Scheduled: 06/15/15
[2018-06-22 21:56] VITALS: BP 141/82
--- NOTE | 2018-06-22 22:24 | UC ---
Abdominal Pain Male HPI - HPI Summary HPI Summary: The patient is a 27-year-old male who has a 2 day history of runny nose and cough. He has had no fever or chills. He denies any myalgias. He has had some sinus pain and pressure. He denies any chest pain or shortness of breath. Today at work he developed some epigastric discomfort that radiates to his right. The pain is been constant since morning however it waxes and wanes. The pain level is mild. He states that over the past few weeks to months he has noticed some abdominal pain after eating. There is a strong family history of gallstones. He has a history of kidney stones but states this does not feel anything like any of the kidney stones he has ever had. He denies any hematuria or back pain. He has had no nausea vomiting or diarrhea. - History of Current Complaint Chief Complaint: UCAbdominalPain Stated Complaint: ABDOMINAL PAIN Time Seen by Provider: 06/22/18 22:13 Hx Obtained From: Patient Onset/Duration: Gradual Onset, Lasting Hours Timing: Constant Severity Initially: Mild Severity Currently: Mild Pain Intensity: 3 Pain Scale Used: 0-10 Numeric Location: Epigastric Radiates: Yes Character: Colicy Aggravating Factor(s): Food Associated Signs And Symptoms: Positive: Cough - Allergies/Home Medications Allergies/Adverse Reactions: Allergies Allergy/AdvReac Type Severity Reaction Status Date / Time carbamazepine [From Tegretol] Allergy Intermediate rash/fever Verified 06/22/18 21:42 cefaclor [From Ceclor] Allergy Intermediate Rash Verified 06/22/18 21:42 topiramate [From Topamax] Allergy Intermediate rash/fever Verified 06/22/18 21: 42 Penicillins Allergy Unknown Unknown Verified 06/22/18 21:42 Reaction Details Home Medications: Home Medications Levocetirizine Dihydrochloride [Xyzal] 2.5 mg DAILY 06/22/18 [History Confirmed 06/22/18] lamoTRIgine [Lamictal Xr] 1 tab BID 06/22/18 [History Confirmed 06/22/18] PMH/Surg Hx/FS Hx/Imm Hx Previously Healthy: Yes Respiratory History: Asthma - EIA, Bronchitis GI/ History: Gastroesophageal Reflux, Kidney Stones, Other Other GI/ History: fatty liver/hx of increased LFTs Neurological History: Seizures Other History Of: Negative For: HIV, Hepatitis B, Hepatitis C - Surgical History Surgical History: Yes Surgery Procedure, Year, and Place: T&A. L testicle surgery - Family History Known Family History: Positive: None, Cardiac Disease, Hypertension, Diabetes, Other - Social History Alcohol Use: Rare Substance Use Type: None Smoking Status (MU): Never Smoked Tobacco - Immunization History Most Recent Influenza Vaccination: none Most Recent Tetanus Shot: unknown Hx Tetanus, Diphtheria Vaccination: No Vaccination Up to Date: Yes Review of Systems All Other Systems Reviewed And Are Negative: Yes Constitutional: Positive: Negative Skin: Positive: Negative Eyes: Positive: Negative ENT: Positive: Negative Respiratory: Positive: Cough Cardiovascular: Positive: Negative Gastrointestinal: Positive: Abdominal Pain Genitourinary: Positive: Negative Motor: Positive: Negative Neurovascular: Positive: Negative Musculoskeletal: Positive: Negative Neurological: Positive: Negative Psychological: Positive: Negative Physical Exam Triage Information Reviewed: Yes Appearance: Well-Appearing, No Pain Distress, Well-Nourished Vital Signs: Initial Vital Signs Temp 97.3 F 06/22/18 21:44 Pulse 106 06/22/18 21:44 Resp 20 06/22/18 21:44 BP 141/82 06/22/18 21:44 Pulse Ox 99 06/22/18 21:44 Vital Signs Reviewed: Yes Eye Exam: Normal Eyes: Positive: Conjunctiva Clear ENT: Positive: Hearing grossly normal, Nasal congestion, Uvula midline. Negative: Nasal drainage, TMs normal - unabel to visualize due to cerumen, TM red, Tonsillar swelling, Tonsillar exudate, Muffled voice, Sinus tenderness Neck: Positive: Supple, Nontender, No Lymphadenopathy Respiratory: Positive: Normal breath sounds, No respiratory distress, No accessory muscle use Cardiovascular: Positive: RRR, No Murmur Abdomen Description: Positive: No Organomegaly, Soft, Other: - RUQ tenderness. Negative: Nontender, CVA Tenderness (R), CVA Tenderness (L), Distended, Guarding Bowel Sounds: Positive: Present Musculoskeletal: Positive: ROM Intact, No Edema Neurological: Positive: Alert Skin Exam: Normal Diagnostics - Radiology No standard instances Radiology Interpretation Completed By: ED Physician Summary of Radiographic Findings: negative Abd Pain Male Course/Dx - Differential Dx/Clinical Impression Differential Diagnosis/HQI/PQRI: Gall Bladder Disease Provider Diagnosis: Right upper quadrant abdominal pain Discharge - Sign-Out/Discharge Documenting (check all that apply): Patient Departure All imaging exams completed and their final reports reviewed: No - Discharge Plan Condition: Stable Disposition: HOME Patient Education Materials: Biliary Colic (ED) Referrals: Eddie Parry MD [Primary Care Provider] - As Soon As Possible Additional Instructions: I suspect you may have gallstones your offical XR reading is pending blood work is pending to ER for new or worsening symptoms you may take ibuprofen avoid fatty or fried foods - Billing Disposition and Condition Condition: STABLE Disposition: Home
[2018-06-22] MEDS ORDERED: Ketorolac INJ* 30 MG/ML 1 ML VIAL IM ONE (22:48)
--- NOTE | 2018-06-23 08:29 | UC ---
- Progress Note Progress Note: Radiologist reading of chest x-ray from June 22, 2018 is no acute disease process. The provider interpretation from the same date is also a reading of negative therefore there is no discrepancy. Course/Dx - Diagnoses Provider Diagnoses: Right upper quadrant abdominal pain Discharge - Sign-Out/Discharge Documenting (check all that apply): Patient Departure All imaging exams completed and their final reports reviewed: Yes - Discharge Plan Condition: Stable Disposition: HOME Patient Education Materials: Biliary Colic (ED) Referrals: Eddie Parry MD [Primary Care Provider] - As Soon As Possible Additional Instructions: I suspect you may have gallstones your offical XR reading is pending blood work is pending to ER for new or worsening symptoms you may take ibuprofen avoid fatty or fried foods - Billing Disposition and Condition Condition: STABLE Disposition: Home
[2018-06-23 11:06] LABS: ABS Basophils 0.1 10^3/ul (0-0.2); ABS Eosinophils 0.1 10^3/ul (0-0.6); ABS Lymphocytes 3.1 10^3/ul (1.0-4.8); ABS Nucleated RBC 0 10^3/ul; Eosinophil % 1.2 %; Hematocrit 47 % (42-52); Hemoglobin 15.4 g/dl (14.0-18.0); Lymphocyte % 30.2 %; Mean Corpuscular HGB Conc 33 g/dl (31-36); Mean Corpuscular Hemoglobin 29 pg (27-31); Mean Corpuscular Volume 89 fL (80-94); Mean Platelet Volume 8.6 fL (7.4-10.4); Nucleated Red Blood Cells % 0.1; Platelet Count 283 10^3/ul (150-450); Red Blood Count 5.28 10^6/ul (4.00-5.40); Red Cell Distribution Width 14 % (10.5-15); White Blood Count 10.4 10^3/ul (3.5-10.8)
[2018-06-23 17:51] LABS: Albumin 4.4 g/dL (3.2-5.2); Calcium 9.6 mg/dL (8.6-10.3); Potassium 3.6 mmol/L (3.5-5.0); Total Bilirubin 0.4 mg/dL (0.2-1.0)
[2018-06-23 17:57] LABS: Albumin/Globulin Ratio 1.7 (1-3); EGFR African American 109.3 (>60); EGFR Non-African American 90.3 (>60); Globulin 2.6 g/dL (2-4)
== END 2018-06-22 23:06 | disposition home or self-care (01) ==
LOC: UCCORT 21:02
DX: R10.11 Right upper quadrant pain (principal); J45.909 Unspecified asthma, uncomplicated; Z88.0 Allergy status to penicillin; Z88.1 Allergy status to other antibiotic agents; Z88.8 Allergy status to other drugs, medicaments and biological substances
CPT/HCPCS: 36415; 71046; 80053; 81003; 83690; 85025; 96372; 99211; G0463; J1885